=== PATIENT | male | born 1940 | race Caucasian/White ===

== ENCOUNTER 2019-01-07 17:59 | Observation (INO) | payer MEDICARE ==
[2019-01-08] MEDS ORDERED: Famotidine 20 MG TAB PO SCH (09:00)
[2019-01-08] MEDS ORDERED: Prevnar 13-Val Conj/PF 0.5 ML SYRINGE IM ONE (09:00)
[2019-01-08] MEDS ORDERED: Cyclobenzaprine 10 MG TAB PO SCH (09:00)
[2019-01-08] MEDS ORDERED: Docusate 100 MG CAP PO PRN (09:06)
[2019-01-08] MEDS ORDERED: HYDROcodone/Acetaminophen 10/325 mg Tablet PO PRN (09:06)
[2019-01-08] MEDS ORDERED: hydrALAZINE 20 MG/ML VIAL SLOW IVP PRN (09:06)
[2019-01-08] MEDS ORDERED: Acetaminophen 325 MG TAB PO PRN (09:06)
[2019-01-08 09:10] LABS: Hemoglobin A1c 4.6 % (4.0-6.0)
[2019-01-08 09:24] LABS: Cardiac Risk 3.6 (Less than 4.5)
--- NOTE | 2019-01-08 09:57 | HP ---
PRIMARY CARE PHYSICIAN: Dr. Crum. CHIEF COMPLAINT: Left arm and leg weakness. HISTORY OF PRESENT ILLNESS: Mr. Dupont is a very pleasant 78-year-old gentleman who has a history of hypertension, elevated cholesterol, and BPH. He was in his usual state of health until yesterday around midday. He says he was holding up a computer tablet and he says that he was in the process of trying to put it on the shelf when he noticed that his left arm would not go the right way and he also went to stand up at the same time, and his left leg seemed like it was about to give out from under him. He sat down, so that he would not fall. He told his about what happened and he knows the risks for stroke and for this reason, he was concerned and they brought him to the hospital. He says it lasted only just a few seconds to minutes and then has gone away, has never come back. Currently, he feels back to himself. He says he has even walked up and down the halls without any difficulty. Prior to this, he denies any chest pain, shortness of breath, no PND, no orthopnea, no dizziness, no lightheadedness, no palpitations. He says he has never had an event like this to happen to him before. REVIEW OF SYSTEMS: All systems were reviewed and are negative except for that mentioned in the history of present illness. PAST MEDICAL HISTORY: Significant for hypertension, hypercholesterolemia, BPH, gastroesophageal reflux disease, and mild memory problems. PAST SURGICAL HISTORY: He has had left knee surgery and right rotator cuff surgery, right eye cataract surgery. ALLERGIES: HE SAYS ARE TO GABAPENTIN, WHICH IS MORE OF AN ADVERSE REACTION CAUSING SOME CONFUSION. SOCIAL HISTORY: He is . He smokes about 6 cigarettes a day, but he quit several years ago, actually he quit in 1962. 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 No mention of any alcohol use. FAMILY HISTORY: Significant for coronary artery disease and his father and mother had diabetes mellitus. CURRENT MEDICATIONS: Include: 1. Temazepam 15 mg at bedtime. 2. Flomax 0.4 mg 2 tablets at bedtime. 3. Ranitidine 150 mg at bedtime. 4. Omeprazole 40 mg daily. 5. Lovastatin 40 mg at bedtime. 6. Lisinopril/hydrochlorothiazide 20/25 one tablet daily. 7. Brackney 10/325 q.8 hours p.r.n. 8. Donepezil 10 mg at bedtime. 9. Docusate 100 mg as needed. 10. Flexeril 5 mg at bedtime. 11. Calcium citrate 200 mg daily. 12. Aspirin 81 mg at bedtime. 13. Amlodipine 5 mg at bedtime. PHYSICAL EXAMINATION: GENERAL: He is alert and oriented. He appears to be in no acute distress. He is well developed and well nourished and a good historian. VITAL SIGNS: Blood pressure is 142/76, heart rate 74, respiratory rate of 20, temperature is 97.7. HEENT: Pupils are equal, round, and reactive. Extraocular muscles are intact. Sclerae anicteric. Throat, no erythema, no exudates. NECK: No adenopathy, no bruits. LUNGS: Clear to auscultation. There is no wheezing. No rales, no rhonchi. CARDIOVASCULAR: He had a normal S1, S2. I did not appreciate an S3 or S4. No murmurs, clicks or rubs. ABDOMEN: Soft. It is nontender and nondistended. Positive for bowel sounds. No rebound, no guarding. EXTREMITIES: There is no clubbing, cyanosis, no edema. NEUROLOGICAL: His cranial nerves 2 through 12 are grossly intact. His muscle strength is 5/5 in both his upper and lower extremities. Reflexes are 2+ and symmetric. SKIN AND INTEGUMENT: No skin changes. No rash. LABORATORY DATA: He had lab work done in [place], which was reviewed. This lab work was done on 01/07/2019 and he had a sodium of 131, potassium 3.7, chloride is 97, CO2 is 26, BUN of 12, creatinine 0.8, glucose is 102. White blood cell count is 6.13, hemoglobin of 13.4, hematocrit is 44.1, and platelet count is 287. Troponin was less than 0.010. Urinalysis was negative. IMAGING: He had an EKG, which was sinus rhythm with no ST wave changes. This is by my reading. He had a CTA of the neck showing less than 50% carotid stenosis on the right and approximately 50% on the left internal carotid, some small caliber right vertebral artery and a dominant left vertebral artery. CT of the brain was negative for any acute intracranial process. ASSESSMENT: Mr. Dupont is a pleasant 78-year-old gentleman who presented to the emergency room with an episode of transient left-sided weakness. With the bilateral carotid disease, I suspect that this was likely related to a transient ischemic attack. He will be placed in observation for transient ischemic attack. We will get an MRI of the brain to rule out acute infarct and also get a lipid panel. Monitor him on telemetry and get an echo to find any other modifiable risk factors for transient ischemic attack. Place him on a full dose aspirin and further recommendations to follow. Job ID: [id number]
--- NOTE | 2019-01-08 10:53 | MRI ---
MRI BRAIN WITHOUT CONTRAST: HISTORY: Unable to move left upper extremity. Evaluate for possible stroke. TECHNIQUE: A noncontrast enhanced MRI of the brain is obtained. FINDINGS: A small amount of fluid is seen in the right mastoid air cells. There is mild cortical atrophy and some deep white matter ischemic changes. No evidence of acute intracranial masses, hemorrhages, or strokes seen. Normal flow voids seen in the major intracranial vessels. The patient has had previous right cataract surgery. A small amount of mucosal thickening is seen in the ethmoid air cells. IMPRESSION: No evidence of diffusion restriction seen to suggest acute strokes. POS: [facility]
[2019-01-08 15:35] VITALS: BP 151/74; TEMP 98
[2019-01-08] MEDS ORDERED: Temazepam 15 MG CAP PO SCH (21:00)
[2019-01-08] MEDS ORDERED: Donepezil HCl 10 MG TAB PO SCH (21:00)
[2019-01-08] MEDS ORDERED: Amlodipine 5 MG TAB PO SCH (21:00)
[2019-01-08] MEDS ORDERED: Lisinopril 20 MG TAB PO SCH (21:00)
[2019-01-08] MEDS ORDERED: Tamsulosin HCl 0.4 MG CAP PO SCH (21:00)
[2019-01-08] MEDS ORDERED: Atorvastatin Calcium 10 MG TAB PO SCH (21:00)
--- NOTE | 2019-01-08 22:13 | CON ---
DATE OF CONSULTATION: 01/08/2019 CONSULTING PHYSICIAN: Hospitalist Service. IMPRESSION: 1. Transient ischemic attack with transient left-sided weakness. 2. Hypertension. 3. BPH. PLAN: 1. Full-dose aspirin. 2. Continue statin. 3. Carotid ultrasound. 4. Echocardiogram. HISTORY OF PRESENT ILLNESS: Mr. Dupont is an 78-year-old man who was sitting at home when he noticed his left arm was suddenly weak. He tried to get up ,but could not do so. After falling back into the chair in a matter of a few moments , he was able to maneuver and get back on his feet. He walked over to the mirror and checked his face and did not see any asymmetry. He spoke to his and he did not feel like his speech was slurred. He has never had anything like this before. He was seen in [place] and transferred here. He had an MRI of the brain done, which showed some minimal small vessel ischemic changes, but no acute ischemic damage. His vitals had been stable. His lab work was unremarkable. Echocardiogram has been performed, the results are pending. PAST MEDICAL HISTORY: As listed above. ALLERGIES: NONE REPORTED. SOCIAL HISTORY: No tobacco or alcohol use. He is and lives at home with his . MEDICATIONS: Medication list was reviewed. REVIEW OF SYSTEMS: A 10-system review of systems is otherwise negative. PHYSICAL EXAMINATION: GENERAL: He is a healthy-appearing elderly man, in no distress. VITAL SIGNS: Blood pressure 151/74, pulse 73, respirations 20, temperature 98.0. HEENT: Pupils are equal and reactive. Conjunctivae are clear. Oropharynx is clear. NECK: Supple, no lymphadenopathy. EXTREMITIES: No cyanosis or edema. NEUROLOGIC: He is alert and appropriate. His speech is fluent and clear. Cranial nerves are intact. Motor exam shows symmetric strength. There is no tremor or dysmetria. He can walk independently. Sensation is intact. LABORATORY DATA: EKG shows a normal sinus rhythm. SUMMARY: Elderly man with very brief transient ischemic event. I agree with your current management. He can be discharged after his test results are available. Job ID: [id number] [facility]
--- NOTE | 2019-01-09 03:11 | DIS ---
DATE OF ADMISSION: 01/07/2019 DATE OF DISCHARGE: 01/08/2019 DISCHARGE DISPOSITION: Home. PRIMARY DISCHARGE DIAGNOSES: 1. Transient ischemic attack. 2. Hypercholesterolemia. 3. Hypertension. 4. History of BPH. 5. Gastroesophageal reflux disease. DISCHARGE MEDICATIONS: Include: 1. Aspirin was increased to 325 mg daily. 2. He was taken off lovastatin and placed on Lipitor 20 mg at bedtime. 3. Continue temazepam 15 mg at bedtime. 4. Flomax 0.4 mg 2 tablets at bedtime. 5. Ranitidine 150 mg at bedtime. 6. Omeprazole 40 mg daily. 7. Lisinopril/hydrochlorothiazide 20/25 one tablet daily. 8. Lisinopril 20 mg at bedtime. 9. Preston 10/325 one tablet q.8 as needed. 10. Donepezil 10 mg at bedtime, 100 mg p.r.n. 11. Cyclobenzaprine 5 mg daily. 12. Calcium citrate 200 mg daily. 13. Amlodipine 5 mg at bedtime. PROCEDURES DONE DURING ADMISSION: The patient had an MRI of the brain showing no evidence of any stroke. Echo demonstrated an ejection fraction of 60% to 65% and E:A flow reversal suggestive of diastolic dysfunction. There was no ASD or PFO noted. No masses or vegetations. CODE STATUS: Full code. ALLERGIES: NO KNOWN DRUG ALLERGIES. HOSPITAL COURSE: Mr. Dupont is an 78-year-old gentleman, who presented to the emergency room with sudden onset of left arm and leg weakness. He was thought to have a transient ischemic attack. CT angiogram done at the [facility] demonstrated approximately 50% stenosis in both the right and left internal carotid arteries. MRI was negative for stroke and he was found to have a slightly elevated LDL cholesterol at 126. For this reason, he is being changed from lovastatin to atorvastatin. His hemoglobin A1c was 4.6. Also, we will increase his aspirin dose from 81 mg to 325 mg, and he was warned on the possibility of GI bleed and GI upset. He is to follow up with Dr. Panchal in approximately 1 week. Job ID: [id number]
[2019-01-09] MEDS ORDERED: Enoxaparin Sodium 40 MG/0.4 ML SYRINGE SC SCH (09:00)
[2019-01-09] MEDS ORDERED: Aspirin 325 mg Enteric Coated Tablet PO SCH (09:00)
== END 2019-01-08 19:16 | disposition home or self-care (01) ==
LOC: ERS 17:59 → ERHOLD 18:40 → 2SE 01-08 00:19
PROVIDERS: ADMIT Emergency Medicine; ATTEND Emergency Medicine
DX: G45.9 Transient cerebral ischemic attack, unspecified (principal); I10 Essential (primary) hypertension; E78.00 Pure hypercholesterolemia, unspecified; N40.0 Benign prostatic hyperplasia without lower urinary tract symptoms; K21.9 Gastro-esophageal reflux disease without esophagitis; Z87.891 Personal history of nicotine dependence; Z79.82 Long term (current) use of aspirin; Z79.899 Other long term (current) drug therapy; Z88.8 Allergy status to other drugs, medicaments and biological substances; Z98.890 Other specified postprocedural states
CPT/HCPCS: 70551; 80061; 83036; 90662; 90670; 93306; 99285; G0008; G0009; G0378 ×2; 36415; 90471

== ENCOUNTER 2021-04-27 10:28 | Outpatient (CLI) | payer MEDICARE | END 2021-04-27 10:29 | disposition home or self-care (01) | LOC: TBSIIMAG 10:28 | PROVIDERS: ATTEND Nurse Practitioner Family | DX: M48.062 Spinal stenosis, lumbar region with neurogenic claudication (principal); M47.816 Spondylosis without myelopathy or radiculopathy, lumbar region | CPT/HCPCS: 72148 ==